=== PATIENT | male | born 1965 | race Caucasian/White ===

== ENCOUNTER 2021-01-27 13:31 | Inpatient (IN) | payer OTHER ==
[2021-01-27 14:53] LABS: INR-International Normal Ratio 1.1; Prothrombin Time 11.6 sec (9.5-12.1)
[2021-01-27 14:56] LABS: Hemoglobin 13.8 g/dL (13.5-17.5); Mean Corpuscular HGB CONC 32.7 g/dL (32.0-36.0); Mean Corpuscular Hemoglobin 30.6 pg (27.0-33.0); Mean Corpuscular Volume 93.6 fl (81.2-95.1); Mean Platelet Volume 13.7 fl (7.4-10.4); Platelet Count 80 10x3/uL (150-450); RBC Distribution Width 13.8 % (11.5-14.5); Red Blood Cell (RBC) Count 4.51 10x6/uL (4.32-5.72)
[2021-01-27 14:57] LABS: MDiff Complete? YES; Manual Diff?? YES
[2021-01-27 15:12] LABS: Band 7 % (5-11); Lymphocytes 11 % (21-51); Monocytes 14 % (0-10); Neutrophil 62 % (42-75); Platelet Morphology Comment Appears Decreased; Reactive Lymphocytes 6 % (0-10)
[2021-01-27 16:15] LABS: ALT (SGPT) 22 U/L (8-55); AST (SGOT) 44 U/L (5-34); Albumin 3.7 g/dL (3.5-5.0); Alkaline Phosphatase 55 U/L (40-110); Anion Gap 16 mmol/L (10-20); BUN (Urea Nitrogen) 19 mg/dL (8.4-25.7); Bilirubin, Total 2.2 mg/dL (0.2-1.2); Calc. Creatinine Clearance 0 mL/min (70-130); Calcium 8.8 mg/dL (7.8-10.44); Carbon Dioxide 20 mmol/L (22-29); Chloride 108 mmol/L (98-107); Globulin 4.2 g/dL (2.4-3.5); Glucose 101 mg/dL (70-105); Potassium 3.9 mmol/L (3.5-5.1); Protein, Total 7.9 g/dL (6.0-8.3); Sodium 140 mmol/L (136-145)
[2021-01-27 16:26] LABS: Magnesium 1.8 mg/dL (1.6-2.6)
[2021-01-27 16:42] LABS: CK (CPK) 239 U/L (30-200)
[2021-01-27 19:49] LABS: Bilirubin Neg (Negative); Blood, Urine Negative (Negative); Clarity Clear (Clear); Glucose, Urine (Dipstick) Normal (Negative); Ketone, Urine Negative (Negative); Leukocyte Negative (Negative); Nitrite Negative (Negative); Protein, Urine (Dipstick) Negative (Neg-Trace); Specific Gravity, Urine 1.005 (1.002-1.036)
[2021-01-27] MEDS ORDERED: Rifaximin 550 MG TAB PO SCH (23:00)
[2021-01-28] MEDS: Sodium Chloride 0.9% 1,000 ML IV SCH ×2 (01:29→12:29)
[2021-01-28 05:07] LABS: Hemoglobin 12.6 g/dL (13.5-17.5); Mean Corpuscular HGB CONC 33.1 g/dL (32.0-36.0); Mean Corpuscular Hemoglobin 30.6 pg (27.0-33.0); Mean Corpuscular Volume 92.5 fl (81.2-95.1); Mean Platelet Volume 12.9 fl (7.4-10.4); Platelet Count 94 10x3/uL (150-450); RBC Distribution Width 13.9 % (11.5-14.5); Red Blood Cell (RBC) Count 4.12 10x6/uL (4.32-5.72); White Blood Cell (WBC) Count 4.2 10x3/uL (3.5-10.5)
[2021-01-28 05:22] LABS: ALT (SGPT) 19 U/L (8-55); AST (SGOT) 34 U/L (5-34); Albumin 3.5 g/dL (3.5-5.0); Alkaline Phosphatase 55 U/L (40-110); Anion Gap 12 mmol/L (10-20); BUN (Urea Nitrogen) 19 mg/dL (8.4-25.7); Bilirubin, Total 2.2 mg/dL (0.2-1.2); Calc. Creatinine Clearance 156 mL/min (70-130); Calcium 9.1 mg/dL (7.8-10.44); Carbon Dioxide 24 mmol/L (22-29); Chloride 110 mmol/L (98-107); Globulin 3.7 g/dL (2.4-3.5); Glucose 109 mg/dL (70-105); Magnesium 1.8 mg/dL (1.6-2.6); Potassium 3.4 mmol/L (3.5-5.1); Protein, Total 7.2 g/dL (6.0-8.3); Sodium 143 mmol/L (136-145)
[2021-01-28 05:37] LABS: MDiff Complete? YES
[2021-01-28 05:42] LABS: Band 1 % (5-11); Eosinophils 6 % (0-10); Lymphocytes 27 % (21-51); Monocytes 15 % (0-10); Neutrophil 50 % (42-75)
[2021-01-28 05:44] LABS: Platelet Morphology Comment Appears Increased; RBC Morphology Normal
[2021-01-28] MEDS: DULoxetine 30 MG CAP PO SCH (08:17)
[2021-01-28] MEDS: Carvedilol 3.125 MG TAB PO SCH ×2 (08:17→16:55)
[2021-01-28] MEDS: Enoxaparin Sodium 40 MG/0.4 ML SYRINGE SC SCH (08:18)
[2021-01-28] MEDS: Rifaximin 550 MG TAB PO SCH ×2 (08:18→20:35)
[2021-01-28] MEDS: Spironolactone 25 MG TAB PO SCH (08:19)
[2021-01-28] MEDS ORDERED: EPCLUSA PO SCH (09:00)
[2021-01-28] MEDS: Ribavirin 200 MG CAP PO SCH ×2 (09:04→20:35)
[2021-01-28 17:13] LABS: SARS-CoV-2 PCR by NAA Not Detected (NotDetected)
[2021-01-28] MEDS: HYDROcodone/Acetaminophen 5/325 mg Tablet PO PRN (23:29)
[2021-01-29] MEDS: Sodium Chloride 0.9% 1,000 ML IV SCH (00:46)
[2021-01-29 06:38] VITALS: BMI 47.0
[2021-01-29] MEDS: DULoxetine 30 MG CAP PO SCH (09:05)
[2021-01-29] MEDS: Carvedilol 3.125 MG TAB PO SCH ×2 (09:05→17:58)
[2021-01-29] MEDS: Ribavirin 200 MG CAP PO SCH ×2 (09:05→22:04)
[2021-01-29] MEDS: Rifaximin 550 MG TAB PO SCH ×2 (09:05→22:04)
[2021-01-29] MEDS: Spironolactone 25 MG TAB PO SCH (09:06)
[2021-01-29] MEDS: Enoxaparin Sodium 40 MG/0.4 ML SYRINGE SC SCH (09:06)
[2021-01-29] MEDS ORDERED: Sodium Chloride 0.65% Nasal 44 ML BOT EA NARE PRN (09:13)
[2021-01-29] MEDS ORDERED: GUAIFENESIN SF SOLN 200 MG/10 ML UDCUP PO PRN (09:13)
[2021-01-29] MEDS ORDERED: hydrALAZINE 20 MG/ML VIAL SLOW IVP PRN (09:13)
[2021-01-29] MEDS ORDERED: Loratadine 10 MG TAB PO PRN (09:13)
[2021-01-29] MEDS ORDERED: Ondansetron PF 4 MG/2 ML Vial IVP PRN (09:13)
[2021-01-29] MEDS ORDERED: Artificial Tear Sol 15 ML BOT EA EYE PRN (09:13)
[2021-01-29] MEDS ORDERED: Calcium Carbonate 500 MG ChewTAB PO PRN (09:13)
[2021-01-29] MEDS ORDERED: Hydrocerin (Eucerin) Cream 120 gm Jar TOP PRN (09:13)
[2021-01-29] MEDS ORDERED: Ondansetron ODT 4 MG TAB PO PRN (09:13)
[2021-01-29] MEDS ORDERED: Cepastat Lozenges 1 LOZ PO PRN (09:13)
[2021-01-29] MEDS: HYDROcodone/Acetaminophen 5/325 mg Tablet PO PRN ×2 (09:34→22:16)
[2021-01-29 09:54] LABS: Hemoglobin 12.6 g/dL (13.5-17.5); Mean Corpuscular HGB CONC 31.6 g/dL (32.0-36.0); Mean Corpuscular Hemoglobin 30.2 pg (27.0-33.0); Mean Corpuscular Volume 95.7 fl (81.2-95.1); RBC Distribution Width 13.6 % (11.5-14.5); Red Blood Cell (RBC) Count 4.17 10x6/uL (4.32-5.72); White Blood Cell (WBC) Count 3.6 10x3/uL (3.5-10.5)
[2021-01-29 09:56] LABS: Platelet Count 72 10x3/uL (150-450)
[2021-01-29 09:58] LABS: %Basophils 0.8 % (0.0-2.0); %Eosinophils 6.1 % (0.0-6.0); %Lymphocytes 24.6 % (18.0-47.0); %Neutrophils 54.2 % (40.0-75.0); Mean Platelet Volume 12.3 fl (7.4-10.4)
[2021-01-29 09:59] LABS: #Eosinphils 0.2 10x3/uL (0.0-0.5); #Monocytes 0.5 10x3/uL (0.0-1.1); #Neutrophils 1.9 10x3/uL (1.5-8.4)
[2021-01-29 10:07] LABS: ALT (SGPT) 24 U/L (8-55); AST (SGOT) 42 U/L (5-34); Albumin 3.2 g/dL (3.5-5.0); Alkaline Phosphatase 61 U/L (40-110); Anion Gap 12 mmol/L (10-20); BUN (Urea Nitrogen) 18 mg/dL (8.4-25.7); Calc. Creatinine Clearance 151 mL/min (70-130); Calcium 8.8 mg/dL (7.8-10.44); Carbon Dioxide 22 mmol/L (22-29); Chloride 107 mmol/L (98-107); Globulin 3.6 g/dL (2.4-3.5); Glucose 165 mg/dL (70-105); Magnesium 1.4 mg/dL (1.6-2.6); Phosphorus 4.1 mg/dL (2.3-4.7); Potassium 3.6 mmol/L (3.5-5.1); Protein, Total 6.8 g/dL (6.0-8.3); Sodium 137 mmol/L (136-145)
[2021-01-29] MEDS ORDERED: Magnesium 2 GM/50 ML 2 GM in Premix Bag 1 BAG IVPB SCH (11:45)
[2021-01-30] MEDS: DULoxetine 30 MG CAP PO SCH (08:55)
[2021-01-30] MEDS: Ribavirin 200 MG CAP PO SCH ×2 (08:55→22:26)
[2021-01-30] MEDS: Rifaximin 550 MG TAB PO SCH ×2 (08:55→22:26)
[2021-01-30] MEDS: Spironolactone 25 MG TAB PO SCH (08:55)
[2021-01-30] MEDS: Carvedilol 3.125 MG TAB PO SCH ×2 (08:55→18:23)
[2021-01-30] MEDS: HYDROcodone/Acetaminophen 5/325 mg Tablet PO PRN ×2 (10:57→22:25)
[2021-01-31 06:44] LABS: Anion Gap 10 mmol/L (10-20); BUN (Urea Nitrogen) 17 mg/dL (8.4-25.7); Calc. Creatinine Clearance 166 mL/min (70-130); Calcium 8.9 mg/dL (7.8-10.44); Carbon Dioxide 24 mmol/L (22-29); Chloride 108 mmol/L (98-107); Glucose 136 mg/dL (70-105); Magnesium 1.6 mg/dL (1.6-2.6); Phosphorus 3.2 mg/dL (2.3-4.7); Potassium 3.7 mmol/L (3.5-5.1); Sodium 138 mmol/L (136-145)
[2021-01-31 06:52] LABS: #Eosinphils 0.2 10x3/uL (0.0-0.5); #Monocytes 0.6 10x3/uL (0.0-1.1); #Neutrophils 2.1 10x3/uL (1.5-8.4); %Basophils 0.8 % (0.0-2.0); %Eosinophils 5.1 % (0.0-6.0); %Lymphocytes 25.4 % (18.0-47.0); %Monocytes 14.2 % (0.0-10.0); Hemoglobin 11.4 g/dL (13.5-17.5); Mean Corpuscular HGB CONC 31.8 g/dL (32.0-36.0); Mean Corpuscular Hemoglobin 30.6 pg (27.0-33.0); Mean Platelet Volume 13.6 fl (7.4-10.4); Platelet Count 73 10x3/uL (150-450); RBC Distribution Width 13.3 % (11.5-14.5); Red Blood Cell (RBC) Count 3.73 10x6/uL (4.32-5.72); White Blood Cell (WBC) Count 3.9 10x3/uL (3.5-10.5)
[2021-01-31] MEDS: Carvedilol 3.125 MG TAB PO SCH ×2 (08:54→17:22)
[2021-01-31] MEDS: Rifaximin 550 MG TAB PO SCH ×2 (08:54→20:36)
[2021-01-31] MEDS: Ribavirin 200 MG CAP PO SCH ×2 (08:55→20:36)
[2021-01-31] MEDS: DULoxetine 30 MG CAP PO SCH (08:56)
[2021-01-31] MEDS: Spironolactone 25 MG TAB PO SCH (08:56)
[2021-01-31] MEDS: HYDROcodone/Acetaminophen 5/325 mg Tablet PO PRN (12:19)
[2021-01-31] MEDS: Lactulose 10 GM/15 ML Oral Solution PO SCH (21:07)
[2021-02-01] MEDS: Lactulose 10 GM/15 ML Oral Solution PO SCH ×4 (00:38→14:47)
[2021-02-01] MEDS: HYDROcodone/Acetaminophen 5/325 mg Tablet PO PRN (00:42)
[2021-02-01 04:23] LABS: #Eosinphils 0.3 10x3/uL (0.0-0.5); #Monocytes 0.6 10x3/uL (0.0-1.1); #Neutrophils 2.1 10x3/uL (1.5-8.4); %Basophils 0.7 % (0.0-2.0); %Lymphocytes 27.6 % (18.0-47.0); %Monocytes 13.9 % (0.0-10.0); %Neutrophils 51.3 % (40.0-75.0); Hemoglobin 12.2 g/dL (13.5-17.5); Mean Corpuscular HGB CONC 31.9 g/dL (32.0-36.0); Mean Corpuscular Hemoglobin 30.7 pg (27.0-33.0); Mean Corpuscular Volume 96.5 fl (81.2-95.1); Mean Platelet Volume 12.8 fl (7.4-10.4); Platelet Count 79 10x3/uL (150-450); RBC Distribution Width 13.6 % (11.5-14.5); Red Blood Cell (RBC) Count 3.97 10x6/uL (4.32-5.72); White Blood Cell (WBC) Count 4.2 10x3/uL (3.5-10.5)
[2021-02-01 04:27] LABS: Anion Gap 12 mmol/L (10-20); BUN (Urea Nitrogen) 17 mg/dL (8.4-25.7); Calc. Creatinine Clearance 158 mL/min (70-130); Calcium 8.9 mg/dL (7.8-10.44); Carbon Dioxide 22 mmol/L (22-29); Chloride 109 mmol/L (98-107); Glucose 108 mg/dL (70-105); Magnesium 1.6 mg/dL (1.6-2.6); Potassium 3.6 mmol/L (3.5-5.1); Sodium 139 mmol/L (136-145)
[2021-02-01] MEDS: DULoxetine 30 MG CAP PO SCH (08:35)
[2021-02-01] MEDS: Carvedilol 3.125 MG TAB PO SCH (08:36)
[2021-02-01] MEDS: Ribavirin 200 MG CAP PO SCH (08:36)
[2021-02-01] MEDS: Spironolactone 25 MG TAB PO SCH (08:36)
[2021-02-01] MEDS: Rifaximin 550 MG TAB PO SCH (08:36)
[2021-02-01 08:59] VITALS: BP 136/81; TEMP 98.2
== END 2021-02-01 17:36 | DRG 442 ==
LOC: CSHERS 13:31 → OBSVTOIN 13:32 → CSHTELE 13:32 → EEVIPCON 13:32
PROVIDERS: ADMIT Family Medicine; ATTEND Family Medicine
DX: K72.90 Hepatic failure, unspecified without coma (principal); Z68.42 Body mass index [BMI] 45.0-49.9, adult; E66.01 Morbid (severe) obesity due to excess calories; Z20.822 Contact with and (suspected) exposure to COVID-19; B19.20 Unspecified viral hepatitis C without hepatic coma; I10 Essential (primary) hypertension; M19.90 Unspecified osteoarthritis, unspecified site; F17.210 Nicotine dependence, cigarettes, uncomplicated; D69.6 Thrombocytopenia, unspecified; K74.60 Unspecified cirrhosis of liver; F41.9 Anxiety disorder, unspecified; F32.A Depression, unspecified; E83.42 Hypomagnesemia; E87.6 Hypokalemia
CPT/HCPCS: 36415; 76705; 80048; 80053; 81003; 82140; 82550; 83735; 84100; 84484; 85025; 85610; 85730; 93005; 94760; 94762; J1650; J3475; J7050; U0003; U0005

== ENCOUNTER 2021-02-06 09:08 | Emergency (ER) | payer OTHER ==
[2021-02-06 09:59] LABS: #Eosinphils 0.1 10x3/uL (0.0-0.5); #Monocytes 0.6 10x3/uL (0.0-1.1); #Neutrophils 2.9 10x3/uL (1.5-8.4); %Basophils 0.4 % (0.0-2.0); %Eosinophils 2.9 % (0.0-6.0); %Lymphocytes 18.1 % (18.0-47.0); %Monocytes 13.9 % (0.0-10.0); %Neutrophils 64.5 % (40.0-75.0); Hemoglobin 12.2 g/dL (13.5-17.5); Mean Corpuscular HGB CONC 31.9 g/dL (32.0-36.0); Mean Corpuscular Hemoglobin 30.5 pg (27.0-33.0); Mean Corpuscular Volume 95.5 fl (81.2-95.1); Platelet Count 81 10x3/uL (150-450); RBC Distribution Width 14.6 % (11.5-14.5); White Blood Cell (WBC) Count 4.5 10x3/uL (3.5-10.5)
[2021-02-06 10:03] LABS: Bilirubin Neg (Negative); Blood, Urine Negative (Negative); Clarity Clear (Clear); Glucose, Urine (Dipstick) Normal (Negative); Ketone, Urine Negative (Negative); Leukocyte Negative (Negative); Nitrite Negative (Negative); Protein, Urine (Dipstick) Negative (Neg-Trace); Specific Gravity, Urine 1.005 (1.002-1.036); Urobilinogen Normal mg/dL (Less than 2)
[2021-02-06 10:05] LABS: ALT (SGPT) 21 U/L (8-55); AST (SGOT) 32 U/L (5-34); Acetaminophen Less than 6.0 mcg/mL (10.0-30.0); Albumin 3.5 g/dL (3.5-5.0); Alcohol Less than 10 mg/dL (Less than 10); Alkaline Phosphatase 59 U/L (40-110); Anion Gap 12 mmol/L (10-20); BUN (Urea Nitrogen) 20 mg/dL (8.4-25.7); Bilirubin, Total 2.3 mg/dL (0.2-1.2); CK (CPK) 272 U/L (30-200); Calc. Creatinine Clearance 0 mL/min (70-130); Calcium 7.4 mg/dL (7.8-10.44); Carbon Dioxide 22 mmol/L (22-29); Chloride 111 mmol/L (98-107); Globulin 3.7 g/dL (2.4-3.5); Glucose 124 mg/dL (70-105); Protein, Total 7.2 g/dL (6.0-8.3); Salicylate Less than 8.0 mg/dL (15.0-30.0); Sodium 141 mmol/L (136-145)
[2021-02-06 10:11] LABS: Amphetamine Not Detected (NotDetected); Barbiturates Screen Not Detected (NotDetected); Benzodiazepine Screen Not Detected (NotDetected); Cocaine Metabolite Screen Not Detected (NotDetected); Methadone Not Detected (NotDetected); Methamphetamine Not Detected (NotDetected); Opiate Screen Not Detected (NotDetected); Oxycodone Screen Not Detected (NotDetected); Phencyclidine (PCP) Not Detected (NotDetected); THC/Cannabinoid Screen Not Detected (NotDetected); Tricyclic Screen Not Detected (NotDetected)
== END 2021-02-06 13:13 | disposition short-term general hospital (02) ==
LOC: CSHERS 09:08
DX: K72.90 Hepatic failure, unspecified without coma (principal); D69.6 Thrombocytopenia, unspecified; M17.10 Unilateral primary osteoarthritis, unspecified knee; F17.210 Nicotine dependence, cigarettes, uncomplicated; E66.9 Obesity, unspecified; I10 Essential (primary) hypertension; Z68.45 Body mass index [BMI] 70 or greater, adult; Z87.19 Personal history of other diseases of the digestive system
CPT/HCPCS: 70450; 71045; 80053; 80306; 80307; 81003; 82140; 82550; 84443; 84484; 85025; 93005

== ENCOUNTER 2021-02-21 13:32 | Inpatient (IN) | payer OTHER ==
[2021-02-21] MEDS ORDERED: Senokot S 8.6-50 MG TAB PO PRN (14:06)
[2021-02-21] MEDS ORDERED: Ondansetron PF 4 MG/2 ML Vial IVP PRN (14:06)
[2021-02-21 14:17] VITALS: BMI 22.0
[2021-02-21] MEDS ORDERED: Furosemide 40 MG/4 ML VIAL SLOW IVP SCH (14:30)
[2021-02-21 17:58] LABS: SARS-CoV-2 NAA Rapid Test Not Detected (NotDetected)
[2021-02-21] MEDS: Rifaximin 550 MG TAB PO SCH (22:04)
[2021-02-21] MEDS: Famotidine 20 MG TAB PO SCH (22:04)
[2021-02-21] MEDS: Ribavirin 200 MG CAP PO SCH (22:05)
[2021-02-21] MEDS: HYDROcodone/Acetaminophen 5/325 mg Tablet PO PRN (22:05)
[2021-02-21] MEDS: DULoxetine 30 MG CAP PO SCH (22:05)
[2021-02-21] MEDS: Propranolol 40 MG TAB PO SCH (22:06)
[2021-02-22 04:33] LABS: #Basophils 0.1 10x3/uL (0.0-0.2); #Eosinphils 0.4 10x3/uL (0.0-0.5); #Neutrophils 3.6 10x3/uL (1.5-8.4); %Basophils 0.7 % (0.0-2.0); %Eosinophils 5.5 % (0.0-6.0); %Lymphocytes 24.9 % (18.0-47.0); %Monocytes 14.8 % (0.0-10.0); %Neutrophils 53.7 % (40.0-75.0); Hemoglobin 12.5 g/dL (13.5-17.5); Mean Corpuscular HGB CONC 32.6 g/dL (32.0-36.0); Mean Corpuscular Hemoglobin 30.8 pg (27.0-33.0); Mean Corpuscular Volume 94.3 fl (81.2-95.1); Platelet Count 116 10x3/uL (150-450); RBC Distribution Width 15.8 % (11.5-14.5); Red Blood Cell (RBC) Count 4.06 10x6/uL (4.32-5.72); White Blood Cell (WBC) Count 6.7 10x3/uL (3.5-10.5)
[2021-02-22 04:47] LABS: ALT (SGPT) 21 U/L (8-55); AST (SGOT) 29 U/L (5-34); Albumin 3.4 g/dL (3.5-5.0); Alkaline Phosphatase 60 U/L (40-110); Anion Gap 14 mmol/L (10-20); BUN (Urea Nitrogen) 27 mg/dL (8.4-25.7); Bilirubin, Total 2.3 mg/dL (0.2-1.2); Calc. Creatinine Clearance 117 mL/min (70-130); Calcium 8.9 mg/dL (7.8-10.44); Carbon Dioxide 21 mmol/L (22-29); Chloride 109 mmol/L (98-107); Globulin 3.7 g/dL (2.4-3.5); Glucose 106 mg/dL (70-105); Potassium 4.4 mmol/L (3.5-5.1); Protein, Total 7.1 g/dL (6.0-8.3); Sodium 140 mmol/L (136-145)
[2021-02-22] MEDS: Enoxaparin Sodium 40 MG/0.4 ML SYRINGE SC SCH (08:26)
[2021-02-22] MEDS: Rifaximin 550 MG TAB PO SCH ×2 (08:27→23:12)
[2021-02-22] MEDS: Furosemide 40 MG TAB PO SCH (08:27)
[2021-02-22] MEDS: Famotidine 20 MG TAB PO SCH ×2 (08:27→23:12)
[2021-02-22] MEDS: Spironolactone 25 MG TAB PO SCH (08:27)
[2021-02-22] MEDS: Folic Acid 1 MG TAB PO SCH (08:27)
[2021-02-22] MEDS: Ribavirin 200 MG CAP PO SCH ×2 (08:27→23:13)
[2021-02-22] MEDS: Propranolol 40 MG TAB PO SCH ×2 (08:27→23:12)
[2021-02-22] MEDS ORDERED: SOFOSBUVIR PO SCH (09:00)
[2021-02-22] MEDS ORDERED: VELPATASVIR PO SCH (09:00)
[2021-02-22] MEDS: HYDROcodone/Acetaminophen 5/325 mg Tablet PO PRN (23:11)
[2021-02-22] MEDS: DULoxetine 30 MG CAP PO SCH (23:13)
[2021-02-23 04:19] LABS: Hemoglobin 12.9 g/dL (13.5-17.5); MDiff Complete? YES; Mean Corpuscular HGB CONC 33.2 g/dL (32.0-36.0); Mean Corpuscular Hemoglobin 30.9 pg (27.0-33.0); Mean Corpuscular Volume 93.3 fl (81.2-95.1); Mean Platelet Volume 12.9 fl (7.4-10.4); Platelet Count 124 10x3/uL (150-450); RBC Distribution Width 15.2 % (11.5-14.5); Red Blood Cell (RBC) Count 4.17 10x6/uL (4.32-5.72)
[2021-02-23 04:31] LABS: Anion Gap 13 mmol/L (10-20); BUN (Urea Nitrogen) 27 mg/dL (8.4-25.7); Calc. Creatinine Clearance 108 mL/min (70-130); Calcium 9.1 mg/dL (7.8-10.44); Carbon Dioxide 22 mmol/L (22-29); Chloride 109 mmol/L (98-107); Glucose 114 mg/dL (70-105); Potassium 4.1 mmol/L (3.5-5.1); Sodium 140 mmol/L (136-145)
[2021-02-23 05:38] LABS: Platelet Morphology Comment Appears Decreased; RBC Morphology Normal
[2021-02-23 05:46] LABS: Eosinophils 3 % (0-10); Lymphocytes 32 % (21-51); Monocytes 17 % (0-10); Neutrophil 45 % (42-75)
[2021-02-23] MEDS: Enoxaparin Sodium 40 MG/0.4 ML SYRINGE SC SCH (11:13)
[2021-02-23] MEDS: Propranolol 40 MG TAB PO SCH ×2 (11:14→22:15)
[2021-02-23] MEDS: Ribavirin 200 MG CAP PO SCH ×2 (11:14→22:10)
[2021-02-23] MEDS: Furosemide 40 MG TAB PO SCH (11:15)
[2021-02-23] MEDS: Rifaximin 550 MG TAB PO SCH ×2 (11:15→22:10)
[2021-02-23] MEDS: Spironolactone 25 MG TAB PO SCH (11:15)
[2021-02-23] MEDS: HYDROcodone/Acetaminophen 5/325 mg Tablet PO PRN ×2 (11:16→22:40)
[2021-02-23] MEDS: Folic Acid 1 MG TAB PO SCH (11:16)
[2021-02-23] MEDS: Famotidine 20 MG TAB PO SCH (19:32)
[2021-02-23] MEDS: DULoxetine 30 MG CAP PO SCH (22:09)
[2021-02-24 04:31] LABS: Anion Gap 13 mmol/L (10-20); BUN (Urea Nitrogen) 20 mg/dL (8.4-25.7); Calc. Creatinine Clearance 124 mL/min (70-130); Calcium 8.8 mg/dL (7.8-10.44); Carbon Dioxide 19 mmol/L (22-29); Chloride 110 mmol/L (98-107); Glucose 100 mg/dL (70-105); Potassium 4.3 mmol/L (3.5-5.1); Sodium 138 mmol/L (136-145)
[2021-02-24 06:10] LABS: MDiff Complete? YES
[2021-02-24 06:13] LABS: Hemoglobin 11.8 g/dL (13.5-17.5); Mean Corpuscular HGB CONC 32.3 g/dL (32.0-36.0); Mean Corpuscular Hemoglobin 30.9 pg (27.0-33.0); Mean Corpuscular Volume 95.5 fl (81.2-95.1); Platelet Count 80 10x3/uL (150-450); RBC Distribution Width 15.3 % (11.5-14.5); Red Blood Cell (RBC) Count 3.82 10x6/uL (4.32-5.72); White Blood Cell (WBC) Count 4.9 10x3/uL (3.5-10.5)
[2021-02-24 06:18] LABS: Band 2 % (5-11); Eosinophils 1 % (0-10); Lymphocytes 29 % (21-51); Monocytes 15 % (0-10); Neutrophil 46 % (42-75); Reactive Lymphocytes 5 % (0-10)
[2021-02-24 06:37] LABS: Platelet Morphology Comment Appears Decreased; RBC Morphology Normal
[2021-02-24] MEDS: Folic Acid 1 MG TAB PO SCH (10:37)
[2021-02-24] MEDS: Furosemide 40 MG TAB PO SCH (10:37)
[2021-02-24] MEDS: Ribavirin 200 MG CAP PO SCH ×2 (10:37→20:59)
[2021-02-24] MEDS: Propranolol 40 MG TAB PO SCH ×2 (10:38→21:00)
[2021-02-24] MEDS: Spironolactone 25 MG TAB PO SCH (10:38)
[2021-02-24] MEDS: Rifaximin 550 MG TAB PO SCH ×2 (10:39→21:00)
[2021-02-24] MEDS: Benzonatate 100 MG CAP PO PRN (12:51)
[2021-02-24] MEDS: DULoxetine 30 MG CAP PO SCH (20:59)
[2021-02-25 04:48] LABS: Anion Gap 12 mmol/L (10-20); BUN (Urea Nitrogen) 22 mg/dL (8.4-25.7); Calc. Creatinine Clearance 114 mL/min (70-130); Calcium 8.9 mg/dL (7.8-10.44); Carbon Dioxide 24 mmol/L (22-29); Chloride 105 mmol/L (98-107); Glucose 108 mg/dL (70-105); Potassium 3.9 mmol/L (3.5-5.1); Sodium 137 mmol/L (136-145)
[2021-02-25 06:05] LABS: #Eosinphils 0.2 10x3/uL (0.0-0.5); #Monocytes 0.8 10x3/uL (0.0-1.1); #Neutrophils 2.8 10x3/uL (1.5-8.4); %Basophils 0.7 % (0.0-2.0); %Eosinophils 4.4 % (0.0-6.0); %Lymphocytes 27.8 % (18.0-47.0); %Monocytes 14.7 % (0.0-10.0); %Neutrophils 51.7 % (40.0-75.0); Hemoglobin 11.9 g/dL (13.5-17.5); Mean Corpuscular Hemoglobin 30.6 pg (27.0-33.0); Mean Corpuscular Volume 95.6 fl (81.2-95.1); Mean Platelet Volume 13.5 fl (7.4-10.4); Platelet Count 110 10x3/uL (150-450); RBC Distribution Width 15.4 % (11.5-14.5); Red Blood Cell (RBC) Count 3.89 10x6/uL (4.32-5.72); White Blood Cell (WBC) Count 5.4 10x3/uL (3.5-10.5)
[2021-02-25] MEDS: Spironolactone 25 MG TAB PO SCH (09:37)
[2021-02-25] MEDS: Furosemide 40 MG TAB PO SCH (09:37)
[2021-02-25] MEDS: Rifaximin 550 MG TAB PO SCH ×2 (09:37→21:32)
[2021-02-25] MEDS: Ribavirin 200 MG CAP PO SCH ×2 (09:38→21:32)
[2021-02-25] MEDS: Propranolol 40 MG TAB PO SCH ×2 (09:38→21:30)
[2021-02-25] MEDS: HYDROcodone/Acetaminophen 5/325 mg Tablet PO PRN ×2 (09:39→21:33)
[2021-02-25] MEDS: Benzonatate 100 MG CAP PO PRN ×2 (09:39→21:33)
[2021-02-25] MEDS: Folic Acid 1 MG TAB PO SCH (09:40)
[2021-02-25] MEDS: DULoxetine 30 MG CAP PO SCH (21:32)
[2021-02-25] MEDS: Sodium Chloride 0.9% 1,000 ML IV SCH (22:22)
[2021-02-25 22:48] LABS: HIV (1/2) Antibody/Antigen Non-Reactive (NonReactive); HIV 1/2 INDEX 0.13 S/CO (<1.00); Hep B Surf Ag Non-Reactive S/CO (NonReactive)
[2021-02-25 22:49] LABS: HBSAg Index 0.18 S/CO (0-0.99)
[2021-02-26 08:19] LABS: #Eosinphils 0.2 10x3/uL (0.0-0.5); #Monocytes 0.6 10x3/uL (0.0-1.1); #Neutrophils 1.8 10x3/uL (1.5-8.4); %Basophils 0.7 % (0.0-2.0); %Eosinophils 5.9 % (0.0-6.0); %Lymphocytes 33.5 % (18.0-47.0); %Monocytes 14.5 % (0.0-10.0); %Neutrophils 44.9 % (40.0-75.0); Hemoglobin 11.5 g/dL (13.5-17.5); Mean Corpuscular HGB CONC 32.2 g/dL (32.0-36.0); Mean Corpuscular Hemoglobin 31.1 pg (27.0-33.0); Mean Corpuscular Volume 96.5 fl (81.2-95.1); Platelet Count 101 10x3/uL (150-450); RBC Distribution Width 15.6 % (11.5-14.5); White Blood Cell (WBC) Count 4.1 10x3/uL (3.5-10.5)
[2021-02-26] MEDS: Sodium Chloride 0.9% 1,000 ML IV SCH (08:19)
[2021-02-26 08:25] LABS: PTT 27.5 sec (22.0-33.0); Prothrombin Time 11.4 sec (9.5-12.1)
[2021-02-26 08:32] LABS: ALT (SGPT) 16 U/L (8-55); AST (SGOT) 27 U/L (5-34); Alkaline Phosphatase 52 U/L (40-110); Anion Gap 10 mmol/L (10-20); BUN (Urea Nitrogen) 21 mg/dL (8.4-25.7); Bilirubin, Total 1.9 mg/dL (0.2-1.2); Calc. Creatinine Clearance 141 mL/min (70-130); Calcium 8.5 mg/dL (7.8-10.44); Carbon Dioxide 25 mmol/L (22-29); Chloride 108 mmol/L (98-107); Globulin 3.3 g/dL (2.4-3.5); Glucose 104 mg/dL (70-105); Magnesium 1.7 mg/dL (1.6-2.6); Phosphorus 3.6 mg/dL (2.3-4.7); Potassium 3.8 mmol/L (3.5-5.1); Protein, Total 6.3 g/dL (6.0-8.3); Sodium 139 mmol/L (136-145); Uric Acid 8.6 mg/dL (3.5-7.2)
[2021-02-26] MEDS: Rifaximin 550 MG TAB PO SCH (09:32)
[2021-02-26] MEDS: Folic Acid 1 MG TAB PO SCH (09:32)
[2021-02-26 09:49] LABS: Syphilis Antibody Nonreactive (Nonreactive); Syphilis Antibody Index 0.09 S/CO (<1.00 Non-Reactive)
[2021-02-26 10:30] LABS: Creatinine, Urine 163.52 mg/dL (63-166)
[2021-02-26] MEDS: Propranolol 40 MG TAB PO SCH (10:58)
[2021-02-26] MEDS: HYDROcodone/Acetaminophen 5/325 mg Tablet PO PRN (11:03)
[2021-02-26] MEDS: Ribavirin 200 MG CAP PO SCH (11:03)
[2021-02-26 11:35] VITALS: TEMP 98.4
[2021-02-26 12:04] VITALS: BP 129/79
[2021-02-26 13:11] LABS: HBSAg Index 0.27 S/CO (0-0.99); HIV (1/2) Antibody/Antigen Non-Reactive (NonReactive); HIV 1/2 INDEX 0.11 S/CO (<1.00); Hep B Surf Ag Non-Reactive S/CO (NonReactive)
[2021-02-26 13:43] LABS: Hep C IgG Ab Reflex HepC Qnt (NonReactive); Hep C Index 13.16 S/CO (0-0.79)
[2021-02-26 13:44] LABS: Hep C IgG Ab Reflex HepC Qnt (NonReactive); Hep C Index 13.06 S/CO (0-0.79)
[2021-03-01 18:37] LABS: Hep C PCR-Quant HCV Not Detected IU/mL (.)
[2021-03-03 10:38] LABS: Hep B Surface AG-Rflx Sendout Negative (Negative); Hepatitis B Core Total Positive (Negative); Hepatitis B Surface AB-Sendout Reactive (.)
== END 2021-02-26 15:25 | disposition home or self-care (01) | DRG 441 ==
LOC: EEVIPCON 13:32 → CSHTELE 13:32
PROVIDERS: ADMIT Family Medicine; ATTEND Family Medicine
DX: K72.90 Hepatic failure, unspecified without coma (principal); G93.41 Metabolic encephalopathy; N17.9 Acute kidney failure, unspecified; Z68.42 Body mass index [BMI] 45.0-49.9, adult; Z20.822 Contact with and (suspected) exposure to COVID-19; K74.60 Unspecified cirrhosis of liver; D64.9 Anemia, unspecified; F41.9 Anxiety disorder, unspecified; F32.A Depression, unspecified; I11.9 Hypertensive heart disease without heart failure; E86.0 Dehydration; E66.01 Morbid (severe) obesity due to excess calories; D69.6 Thrombocytopenia, unspecified; B18.2 Chronic viral hepatitis C; Z79.899 Other long term (current) drug therapy
CPT/HCPCS: 36415; 76700; 80048; 80053; 82140; 82570; 82607; 82746; 83735; 84100; 84300; 84540; 84550; 85025; 85610; 85730; 86704; 86705; 86706; 86707; 86780; 86803; 87340; 87350; 87389; 87522; 94760; J1650; J1940; J7050; U0002

== ENCOUNTER 2021-02-27 13:09 | Emergency (ER) | payer OTHER ==
[2021-02-27 14:48] LABS: #Basophils 0.1 10x3/uL (0.0-0.2); #Eosinphils 0.2 10x3/uL (0.0-0.5); #Monocytes 0.6 10x3/uL (0.0-1.1); #Neutrophils 3.6 10x3/uL (1.5-8.4); %Basophils 0.9 % (0.0-2.0); %Eosinophils 3.4 % (0.0-6.0); %Lymphocytes 24.3 % (18.0-47.0); %Monocytes 10.7 % (0.0-10.0); %Neutrophils 60.5 % (40.0-75.0); Mean Corpuscular HGB CONC 32.1 g/dL (32.0-36.0); Mean Corpuscular Hemoglobin 31.2 pg (27.0-33.0); Mean Corpuscular Volume 97.1 fl (81.2-95.1); Platelet Count 117 10x3/uL (150-450); RBC Distribution Width 15.9 % (11.5-14.5); Red Blood Cell (RBC) Count 4.17 10x6/uL (4.32-5.72); White Blood Cell (WBC) Count 5.9 10x3/uL (3.5-10.5)
[2021-02-27 14:52] LABS: ALT (SGPT) 21 U/L (8-55); AST (SGOT) 42 U/L (5-34); Acetaminophen Less than 6.0 mcg/mL (10.0-30.0); Albumin 3.6 g/dL (3.5-5.0); Alcohol Less than 10 mg/dL (Less than 10); Alkaline Phosphatase 57 U/L (40-110); Anion Gap 14 mmol/L (10-20); BUN (Urea Nitrogen) 19 mg/dL (8.4-25.7); Bilirubin, Total 2.2 mg/dL (0.2-1.2); Calc. Creatinine Clearance 0 mL/min (70-130); Carbon Dioxide 22 mmol/L (22-29); Chloride 108 mmol/L (98-107); Globulin 4.1 g/dL (2.4-3.5); Glucose 101 mg/dL (70-105); Potassium 4.5 mmol/L (3.5-5.1); Protein, Total 7.7 g/dL (6.0-8.3); Salicylate Less than 8.0 mg/dL (15.0-30.0); Sodium 139 mmol/L (136-145)
== END 2021-02-27 16:52 ==
LOC: CSHERS 13:09
DX: K72.90 Hepatic failure, unspecified without coma (principal); I10 Essential (primary) hypertension; M17.9 Osteoarthritis of knee, unspecified; E66.9 Obesity, unspecified
CPT/HCPCS: 36415; 80053; 80307; 82140; 83690; 85025; 99285

== ENCOUNTER 2021-03-23 13:54 | Inpatient (IN) | payer OTHER ==
[2021-03-23] MEDS ORDERED: Ondansetron PF 4 MG/2 ML Vial ONE (14:25)
[2021-03-23 14:36] LABS: ALT (SGPT) 16 U/L (8-55); AST (SGOT) 30 U/L (5-34); Acetaminophen Less than 6.0 mcg/mL (10.0-30.0); Albumin 3.3 g/dL (3.5-5.0); Alcohol Less than 10 mg/dL (Less than 10); Alkaline Phosphatase 62 U/L (40-110); Anion Gap 11 mmol/L (10-20); BUN (Urea Nitrogen) 18 mg/dL (8.4-25.7); Bilirubin, Total 2.6 mg/dL (0.2-1.2); Calc. Creatinine Clearance 0 mL/min (70-130); Calcium 8.5 mg/dL (7.8-10.44); Carbon Dioxide 22 mmol/L (22-29); Chloride 109 mmol/L (98-107); Globulin 3.6 g/dL (2.4-3.5); Glucose 102 mg/dL (70-105); Lipase 17 U/L (8-78); Potassium 3.8 mmol/L (3.5-5.1); Protein, Total 6.9 g/dL (6.0-8.3); Salicylate Less than 8.0 mg/dL (15.0-30.0); Sodium 138 mmol/L (136-145)
[2021-03-23 14:38] LABS: INR-International Normal Ratio 1.1; PTT 27.1 sec (22.0-33.0); Prothrombin Time 11.7 sec (9.5-12.1)
[2021-03-23 15:30] LABS: SARS-CoV-2 NAA Rapid Test Not Detected (NotDetected)
[2021-03-23 17:10] LABS: Actual Bicarbonate (HCO3v) 23 mEq/L (22-28); Base Excess -2.2 mEq/L (-2.0 to +3.0); Calcium, Ionized (venous) 1.06 mmol/L (1.16-1.32); Chloride (VBG) 107 mmol/L (98-106); Hemoglobin (Hb) 14.4 g/dL (13.1-17.2); Potassium (VBG) 4.35 mmol/L (3.70-5.30); Puncture Site Other Site; RapidComm Collect By CBN; pH (venous) 7.38 (7.32-7.43)
[2021-03-23 18:08] LABS: Lactic Acid 3.3 mmol/L (0.5-2.2)
[2021-03-23] MEDS ORDERED: Guaifenesin DM 100-10/5 ML UDCUP PO PRN (19:24)
[2021-03-23] MEDS ORDERED: Calcium Carbonate 500 MG ChewTAB PO PRN (19:24)
[2021-03-23] MEDS ORDERED: Ondansetron PF 4 MG/2 ML Vial IVP PRN (19:24)
[2021-03-23] MEDS ORDERED: Sodium Chloride 0.45% 1,000 ML IV SCH (19:30)
[2021-03-23 20:09] LABS: Bilirubin Neg (Negative); Blood, Urine Negative (Negative); Clarity Clear (Clear); Glucose, Urine (Dipstick) Normal (Negative); Ketone, Urine Negative (Negative); Leukocyte Negative (Negative); Nitrite Negative (Negative); Protein, Urine (Dipstick) 15 mg/dl (Neg-Trace); Urobilinogen Normal mg/dL (Less than 2)
[2021-03-23 20:17] LABS: Amphetamine Not Detected (NotDetected); Barbiturates Screen Not Detected (NotDetected); Benzodiazepine Screen Not Detected (NotDetected); Cocaine Metabolite Screen Not Detected (NotDetected); Methadone Not Detected (NotDetected); Methamphetamine Not Detected (NotDetected); Opiate Screen Not Detected (NotDetected); Oxycodone Screen Not Detected (NotDetected); Phencyclidine (PCP) Not Detected (NotDetected); THC/Cannabinoid Screen Not Detected (NotDetected); Tricyclic Screen Not Detected (NotDetected)
[2021-03-23 20:24] LABS: #Eosinphils 0.3 10x3/uL (0.0-0.5); #Monocytes 0.7 10x3/uL (0.0-1.1); %Basophils 0.7 % (0.0-2.0); %Eosinophils 5.2 % (0.0-6.0); %Lymphocytes 25.7 % (18.0-47.0); %Monocytes 12.3 % (0.0-10.0); %Neutrophils 55.9 % (40.0-75.0); Mean Corpuscular HGB CONC 32.1 g/dL (32.0-36.0); Mean Corpuscular Hemoglobin 31.5 pg (27.0-33.0); Mean Corpuscular Volume 98.2 fl (81.2-95.1); Mean Platelet Volume 13.4 fl (7.4-10.4); RBC Distribution Width 14.6 % (11.5-14.5); Red Blood Cell (RBC) Count 4.44 10x6/uL (4.32-5.72); White Blood Cell (WBC) Count 5.4 10x3/uL (3.5-10.5)
[2021-03-23 20:25] LABS: Platelet Count 82 10x3/uL (150-450)
[2021-03-23] MEDS: Acetaminophen 325 MG TAB PO PRN (22:26)
[2021-03-23] MEDS: Propranolol 10 MG TAB PO SCH (22:27)
[2021-03-23] MEDS: Rifaximin 550 MG TAB PO SCH (22:27)
[2021-03-23] MEDS: Ribavirin 200 MG CAP PO SCH (22:41)
[2021-03-23] MEDS: Heparin 5,000 UNITS/ML VIAL SC SCH (22:44)
[2021-03-24 01:04] LABS: Bilirubin Neg (Negative); Blood, Urine Negative (Negative); Clarity Clear (Clear); Glucose, Urine (Dipstick) Normal (Negative); Ketone, Urine Negative (Negative); Leukocyte Negative (Negative); Nitrite Negative (Negative); Protein, Urine (Dipstick) 15 mg/dl (Neg-Trace); Specific Gravity, Urine 1.025 (1.002-1.036)
[2021-03-24 01:08] VITALS: BMI 45.6
[2021-03-24 01:09] LABS: Legionella Urinary Ag Negative (Negative); Strep pneumo Urine Ag NEGATIVE (NEGATIVE)
[2021-03-24 01:13] LABS: Bacteria/HPF None Seen HPF (None Seen); Mucous/LPF None Seen LPF (<2+); RBC/HPF 0-3 HPF (0-3); Squamous Epithelial 0-3 HPF (0-3); WBC/HPF 0-3 HPF (0-3)
[2021-03-24 04:31] LABS: ALT (SGPT) 14 U/L (8-55); AST (SGOT) 31 U/L (5-34); Alkaline Phosphatase 58 U/L (40-110); Anion Gap 11 mmol/L (10-20); BUN (Urea Nitrogen) 19 mg/dL (8.4-25.7); Calc. Creatinine Clearance 152 mL/min (70-130); Calcium 8.6 mg/dL (7.8-10.44); Carbon Dioxide 21 mmol/L (22-29); Chloride 110 mmol/L (98-107); Globulin 3.4 g/dL (2.4-3.5); Glucose 132 mg/dL (70-105); Protein, Total 6.4 g/dL (6.0-8.3); Sodium 138 mmol/L (136-145)
[2021-03-24 05:14] LABS: Hemoglobin 11.5 g/dL (13.5-17.5); Mean Corpuscular HGB CONC 32.1 g/dL (32.0-36.0); Mean Corpuscular Hemoglobin 31.6 pg (27.0-33.0); Mean Corpuscular Volume 98.4 fl (81.2-95.1); Mean Platelet Volume 13.2 fl (7.4-10.4); Platelet Count 81 10x3/uL (150-450); RBC Distribution Width 14.6 % (11.5-14.5); Red Blood Cell (RBC) Count 3.64 10x6/uL (4.32-5.72); White Blood Cell (WBC) Count 3.6 10x3/uL (3.5-10.5)
[2021-03-24 05:15] LABS: MDiff Complete? YES
[2021-03-24 05:18] LABS: Band 1 % (5-11); Eosinophils 9 % (0-10); Lymphocytes 16 % (21-51); Monocytes 21 % (0-10); Neutrophil 49 % (42-75); Reactive Lymphocytes 4 % (0-10)
[2021-03-24 05:20] LABS: Platelet Morphology Comment Appears Decreased; RBC Morphology Normal
[2021-03-24] MEDS: Acetaminophen 325 MG TAB PO PRN (06:06)
[2021-03-24] MEDS ORDERED: VELPATASVIR PO SCH (09:00)
[2021-03-24] MEDS ORDERED: SOFOSBUVIR PO SCH (09:00)
[2021-03-24] MEDS: traMADol HCl 50 MG TAB PO PRN ×2 (10:47→18:34)
[2021-03-24] MEDS: Folic Acid 1 MG TAB PO SCH (10:48)
[2021-03-24] MEDS: Propranolol 10 MG TAB PO SCH ×2 (10:48→21:10)
[2021-03-24] MEDS: Spironolactone 25 MG TAB PO SCH (10:48)
[2021-03-24] MEDS: Ribavirin 200 MG CAP PO SCH ×2 (10:49→21:12)
[2021-03-24] MEDS: Rifaximin 550 MG TAB PO SCH ×2 (10:49→21:09)
[2021-03-24] MEDS: Furosemide 20 MG TAB PO SCH (10:49)
[2021-03-24] MEDS: Cyanocobalamin (Vitamin B-12) 1,000 MCG TAB PO SCH (10:49)
[2021-03-24] MEDS: Heparin 5,000 UNITS/ML VIAL SC SCH (10:49)
[2021-03-25] MEDS: traMADol HCl 50 MG TAB PO PRN ×3 (06:07→18:33)
[2021-03-25 07:04] LABS: ALT (SGPT) 14 U/L (8-55); AST (SGOT) 26 U/L (5-34); Alkaline Phosphatase 61 U/L (40-110); Anion Gap 12 mmol/L (10-20); BUN (Urea Nitrogen) 20 mg/dL (8.4-25.7); Bilirubin, Total 2.7 mg/dL (0.2-1.2); Calc. Creatinine Clearance 129 mL/min (70-130); Calcium 8.5 mg/dL (7.8-10.44); Carbon Dioxide 21 mmol/L (22-29); Chloride 108 mmol/L (98-107); Globulin 3.2 g/dL (2.4-3.5); Glucose 140 mg/dL (70-105); Magnesium 1.7 mg/dL (1.6-2.6); Phosphorus 3.8 mg/dL (2.3-4.7); Potassium 4.2 mmol/L (3.5-5.1); Protein, Total 6.2 g/dL (6.0-8.3); Sodium 137 mmol/L (136-145)
[2021-03-25 07:06] LABS: Hemoglobin 11.6 g/dL (13.5-17.5); Mean Corpuscular HGB CONC 31.9 g/dL (32.0-36.0); Mean Corpuscular Hemoglobin 31.5 pg (27.0-33.0); Mean Corpuscular Volume 98.9 fl (81.2-95.1); Mean Platelet Volume 13.4 fl (7.4-10.4); RBC Distribution Width 14.6 % (11.5-14.5); Red Blood Cell (RBC) Count 3.68 10x6/uL (4.32-5.72); White Blood Cell (WBC) Count 5.2 10x3/uL (3.5-10.5)
[2021-03-25 07:07] LABS: Platelet Count 83 10x3/uL (150-450)
[2021-03-25 07:20] LABS: MDiff Complete? YES
[2021-03-25 07:26] LABS: Band 3 % (5-11); Eosinophils 3 % (0-10); Lymphocytes 18 % (21-51); Monocytes 20 % (0-10); Neutrophil 51 % (42-75); Reactive Lymphocytes 5 % (0-10)
[2021-03-25 07:28] LABS: Platelet Morphology Comment Appears Decreased; RBC Morphology Normal
[2021-03-25] MEDS: Spironolactone 25 MG TAB PO SCH (08:26)
[2021-03-25] MEDS: Folic Acid 1 MG TAB PO SCH (08:27)
[2021-03-25] MEDS: Ribavirin 200 MG CAP PO SCH ×2 (08:27→21:23)
[2021-03-25] MEDS: Cyanocobalamin (Vitamin B-12) 1,000 MCG TAB PO SCH (08:27)
[2021-03-25] MEDS: Furosemide 20 MG TAB PO SCH (08:27)
[2021-03-25] MEDS: Propranolol 10 MG TAB PO SCH ×2 (08:27→21:22)
[2021-03-25] MEDS: Rifaximin 550 MG TAB PO SCH ×2 (08:27→21:23)
[2021-03-25] MEDS ORDERED: FLU VACC QS2021-22(6MOS UP)/PF 60 MCG/0.5 ML SYRINGE IM ONE (09:00)
[2021-03-25] MEDS: Sodium Chloride 0.9% 1,000 ML IV SCH ×2 (13:23→23:09)
[2021-03-25] MEDS ORDERED: Polyethylene Glycol 3350 17 GM Packet PO SCH (18:30)
[2021-03-25] MEDS: Senokot S 8.6-50 MG TAB PO SCH (21:23)
[2021-03-26 05:54] LABS: Hemoglobin 11.3 g/dL (13.5-17.5); Mean Corpuscular Hemoglobin 31.7 pg (27.0-33.0); Mean Corpuscular Volume 98.9 fl (81.2-95.1); Mean Platelet Volume 13.1 fl (7.4-10.4); RBC Distribution Width 14.2 % (11.5-14.5); Red Blood Cell (RBC) Count 3.57 10x6/uL (4.32-5.72); White Blood Cell (WBC) Count 4.9 10x3/uL (3.5-10.5)
[2021-03-26 06:08] LABS: ALT (SGPT) 14 U/L (8-55); AST (SGOT) 24 U/L (5-34); Albumin 2.8 g/dL (3.5-5.0); Alkaline Phosphatase 64 U/L (40-110); Anion Gap 11 mmol/L (10-20); BUN (Urea Nitrogen) 16 mg/dL (8.4-25.7); Bilirubin, Total 2.3 mg/dL (0.2-1.2); Calc. Creatinine Clearance 146 mL/min (70-130); Calcium 8.2 mg/dL (7.8-10.44); Carbon Dioxide 22 mmol/L (22-29); Chloride 108 mmol/L (98-107); Globulin 3.1 g/dL (2.4-3.5); Glucose 139 mg/dL (70-105); Magnesium 2.8 mg/dL (1.6-2.6); Phosphorus 3.1 mg/dL (2.3-4.7); Potassium 3.8 mmol/L (3.5-5.1); Protein, Total 5.9 g/dL (6.0-8.3); Sodium 137 mmol/L (136-145)
[2021-03-26 06:38] LABS: MDiff Complete? YES; Platelet Count 79 10x3/uL (150-450)
[2021-03-26 06:57] LABS: Band 5 % (5-11); Eosinophils 8 % (0-10); Lymphocytes 21 % (21-51); Monocytes 14 % (0-10); Reactive Lymphocytes 3 % (0-10)
[2021-03-26 06:58] LABS: Neutrophil 48 % (42-75); Platelet Morphology Comment Appears Decreased; RBC Morphology Normal
[2021-03-26] MEDS: Sodium Chloride 0.9% 1,000 ML IV SCH (07:38)
[2021-03-26] MEDS: Propranolol 10 MG TAB PO SCH ×2 (10:52→22:47)
[2021-03-26] MEDS: Rifaximin 550 MG TAB PO SCH ×2 (10:53→22:48)
[2021-03-26] MEDS: Cyanocobalamin (Vitamin B-12) 1,000 MCG TAB PO SCH (10:53)
[2021-03-26] MEDS: Folic Acid 1 MG TAB PO SCH (10:53)
[2021-03-26] MEDS: Ribavirin 200 MG CAP PO SCH ×2 (10:53→22:48)
[2021-03-26] MEDS: Spironolactone 25 MG TAB PO SCH (10:53)
[2021-03-26] MEDS: Furosemide 20 MG TAB PO SCH (10:53)
[2021-03-26] MEDS: Polyethylene Glycol 3350 17 GM Packet PO SCH (10:54)
[2021-03-26] MEDS: traMADol HCl 50 MG TAB PO PRN ×2 (11:13→23:05)
[2021-03-26] MEDS: Senokot S 8.6-50 MG TAB PO SCH ×2 (15:39→22:47)
[2021-03-27 05:53] LABS: ALT (SGPT) 14 U/L (8-55); AST (SGOT) 27 U/L (5-34); Alkaline Phosphatase 67 U/L (40-110); Anion Gap 12 mmol/L (10-20); BUN (Urea Nitrogen) 17 mg/dL (8.4-25.7); Bilirubin, Total 2.4 mg/dL (0.2-1.2); Calc. Creatinine Clearance 137 mL/min (70-130); Calcium 8.6 mg/dL (7.8-10.44); Carbon Dioxide 23 mmol/L (22-29); Chloride 107 mmol/L (98-107); Globulin 3.4 g/dL (2.4-3.5); Glucose 107 mg/dL (70-105); Magnesium 1.7 mg/dL (1.6-2.6); Phosphorus 3.4 mg/dL (2.3-4.7); Potassium 3.9 mmol/L (3.5-5.1); Protein, Total 6.4 g/dL (6.0-8.3); Sodium 138 mmol/L (136-145)
[2021-03-27 06:03] LABS: Platelet Count 89 10x3/uL (150-450)
[2021-03-27 06:04] LABS: Hemoglobin 11.6 g/dL (13.5-17.5); Mean Corpuscular HGB CONC 31.7 g/dL (32.0-36.0); Mean Corpuscular Hemoglobin 31.4 pg (27.0-33.0); Mean Corpuscular Volume 99.2 fl (81.2-95.1); Mean Platelet Volume 13.8 fl (7.4-10.4); RBC Distribution Width 14.4 % (11.5-14.5); Red Blood Cell (RBC) Count 3.69 10x6/uL (4.32-5.72); White Blood Cell (WBC) Count 5.2 10x3/uL (3.5-10.5)
[2021-03-27 06:27] LABS: MDiff Complete? YES
[2021-03-27 06:37] LABS: Platelet Morphology Comment Appears Decreased
[2021-03-27 06:38] LABS: RBC Morphology Normal
[2021-03-27 06:45] LABS: Eosinophils 7 % (0-10); Lymphocytes 25 % (21-51); Monocytes 14 % (0-10); Neutrophil 54 % (42-75)
[2021-03-27] MEDS: Polyethylene Glycol 3350 17 GM Packet PO SCH (09:08)
[2021-03-27] MEDS: Cyanocobalamin (Vitamin B-12) 1,000 MCG TAB PO SCH (09:09)
[2021-03-27] MEDS: Spironolactone 25 MG TAB PO SCH (09:09)
[2021-03-27] MEDS: traMADol HCl 50 MG TAB PO PRN ×2 (09:10→16:02)
[2021-03-27] MEDS: Furosemide 20 MG TAB PO SCH (09:11)
[2021-03-27] MEDS: Folic Acid 1 MG TAB PO SCH (09:11)
[2021-03-27] MEDS: Senokot S 8.6-50 MG TAB PO SCH (09:11)
[2021-03-27] MEDS: Rifaximin 550 MG TAB PO SCH (09:11)
[2021-03-27] MEDS: Ribavirin 200 MG CAP PO SCH (09:11)
[2021-03-27] MEDS: Propranolol 10 MG TAB PO SCH (09:11)
[2021-03-27 16:39] VITALS: BP 117/56; TEMP 97.4
== END 2021-03-27 17:24 | disposition home or self-care (01) | DRG 441 ==
LOC: CSHERS 13:54 → CSHTELE 21:00 → EEVIPCON 03-24 10:31 → OBSVTOIN 03-24 10:31
PROVIDERS: ADMIT Internal Medicine; ATTEND Family Medicine
DX: K72.00 Acute and subacute hepatic failure without coma (principal); J18.9 Pneumonia, unspecified organism; E87.2 Acidosis; Z68.42 Body mass index [BMI] 45.0-49.9, adult; R18.8 Other ascites; N17.9 Acute kidney failure, unspecified; Z20.822 Contact with and (suspected) exposure to COVID-19; M19.90 Unspecified osteoarthritis, unspecified site; K74.60 Unspecified cirrhosis of liver; B18.2 Chronic viral hepatitis C; D69.6 Thrombocytopenia, unspecified; I12.9 Hypertensive chronic kidney disease with stage 1 through stage 4 chronic kidney disease, or unspecified chronic kidney disease; N18.2 Chronic kidney disease, stage 2 (mild); D53.9 Nutritional anemia, unspecified; E66.01 Morbid (severe) obesity due to excess calories; F41.9 Anxiety disorder, unspecified; F32.A Depression, unspecified; Z79.899 Other long term (current) drug therapy
CPT/HCPCS: 36415; 70450; 71045; 76705; 80053; 80306; 80307; 81001; 81003; 82140; 82805; 83605; 83690; 83735; 83880; 84100; 84145; 84484; 85025; 85610; 85730; 87449; 87899; 93005; 94760; 96374; 96375; G0378; J1956; J2405; J7050; J7620; U0002